=== PATIENT | female | born 1965 ===

== ENCOUNTER 2024-06-29 09:00 | Outpatient (CLI) | payer OTHER | END 2024-06-29 09:02 | disposition home or self-care (01) | LOC: SONOGRAMA 09:00 | PROVIDERS: ATTEND Pathology Anatomic Pathology & Clinical Pathology | DX: D44.0 Neoplasm of uncertain behavior of thyroid gland (principal); C73 Malignant neoplasm of thyroid gland ==

== ENCOUNTER 2025-01-04 08:00 | Outpatient (CLI) | payer OTHER | END 2025-01-04 08:09 | disposition home or self-care (01) | LOC: SONOGRAMA 08:00 | PROVIDERS: ATTEND Internal Medicine Infectious Disease | DX: C73 Malignant neoplasm of thyroid gland (principal) ==